=== PATIENT | female | born 1985 | race Caucasian/White ===

== ENCOUNTER 2019-08-20 06:50 | Inpatient (IN) | payer OTHER, MEDICAID ==
[~2019-08-20] VITALS: Ht 162.6 cm; Wt 121.4 kg
[2019-08-21] VITALS (30 sets, daily range): BP systolic 107–147; BP diastolic 53–88; PULSE 76–112; TEMP 97.7–98.6
--- NOTE | 2019-08-21 07:10 | NUR ---
0710- Patient arrives ambulatory with FOB for scheduled induction of labor for PIH. Patient denies contractions, ROM or vaginal bleeding and reports normal movement. Plan of care for induction reviewed, patient denies questions and agrees. 0715- Patient changes into gown, EFM explained and placed. VS obtained. Dr. Rivera at bedside. Discusses POC, patient denies questions. Vertex presentation confirmed via bedside ultrasound by physician. Orders to begin Pitocin induction, physician will come perform SVE and possible AROM later this morning. 0735- IV started in RH, labs obtained and sent. LR infusing per protocol. Consents explained and signed. Patient denies questions. 0800- Pitocin administration reviewed with patient. Patient denies questions, Pitocin started at 2 mU per protocol and order. Reactive FHR strip obtained. Will monitor per protocol. Call light in reach.
[2019-08-21] MEDS ORDERED: PRENATAL TABLET PO (07:31)
[2019-08-21 07:55] LABS: COLLECTION METHOD CLEAN CATCH
[2019-08-21 07:57] LABS: BASO % 0.2 % (0.0-2.0); EOS # 0.2 (0.0-0.7); EOS % 1.6 % (0-4.0); GRAN # 7.8 (1.4-6.5); GRAN % 68.2 % (42.2-75.2); HEMOGLOBIN 12.3 g/dl (12.5-16.0); LYMPH # 2.7 (1.2-3.4); LYMPH % 23.9 % (20.0-51.0); MEAN CELL VOLUME 92 fl (80.0-100.0); MEAN CORPUSCULAR HEMOGLOBIN 31 pg (27.0-31.0); MEAN CORPUSCULAR HGB CONC 34 g/dl (33.0-37.0); MEAN PLATELET VOLUME 10.3 fl (7.4-10.4); MONO # 0.6 (0.1-0.6); MONO % 5.6 % (1.7-9.3); PLATELET COUNT 277 K/mm3 (130-400); RED BLOOD COUNT 3.97 M/mm3 (4.10-5.30); REDCELL DISTRIBUTION WIDTH-CV 13.2 % (11.5-14.5)
[2019-08-21 08:03] LABS: HEMATOCRIT 36.6 % (37.0-47.0)
[2019-08-21 08:09] LABS: ALBUMIN 3.6 gm/dL (3.5-5.0); BILIRUBIN,TOTAL 0.2 mg/dL (0.0-1.0); CALCIUM 8.9 mg/dL (8.4-10.2); CREATININE, serum 0.56 (0.52-1.25); POTASSIUM 4.3 mmol/L (3.4-5.0); TOTAL PROTEIN 6.9 gm/dL (6.4-8.2)
[2019-08-21 08:14] LABS: PH 6 (5-8); URINE APPEARANCE Clear; URINE BACTERIA Occasional /hpf; URINE BILIRUBIN Negative (NEGATIVE); URINE BLOOD Negative (NEGATIVE); URINE COLOR Straw; URINE GLUCOSE Negative (NEGATIVE); URINE KETONE Negative (NEGATIVE); URINE LEUKOCYTE ESTERASE Negative (NEGATIVE); URINE NITRATE Negative (NEGATIVE); URINE PROTEIN(semi-quant) Negative (NEGATIVE); URINE RBC 0-2 /hpf; URINE UROBILINOGEN Negative (NEGATIVE)
--- NOTE | 2019-08-21 09:40 | NUR ---
Patient moving with contractions, difficulty tracing FHR strip and toco continuously due to maternal movement and habitus. Patient repositioned RL. Contractions palpated by RN every 2.5-3 minutes with good resting tone noted.
--- NOTE | 2019-08-21 10:25 | NUR ---
Patient reports increased pain with contractions. SVE 4/70/-3, vertex ballotable. Patient requesting epidural. Christina Bass CRNA notified. 1035- Patient up to bathroom then sitting at bedside for epidural placement. Christina Bass LEGAL NURSE CONSULTANT at bedside. Difficulty tracing FHR due to maternal position and habitus. Pitocin infusion paused at this time due to inability to monitor. 1046- Epidural test dose by Christina Bass CRNA. Patient tolerates well, no adverse reactions noted. See anesthesia record. 1052- Patient repositioned WL following epidural. Updated on plan of care and safety.
--- NOTE | 2019-08-21 12:15 | NUR ---
Patient very uncomfortable with contractions, reports increased pressure. SVE 8/0. Attempt to contact Dr. Rivera x3. Roles on unit. RN remains at bedside. 1220- Dr. Rivera reached, requested at beside for imminent delivery. 1222- Dr. Rivera at bedside. Ahuja catheter removed prior to pushing. Patient assisted to footplates, periprep completed. 1225- SVE 10/+2 per physician. 1228- Patient begins pushing with contractions with physician at bedside. Moves vertex well. 1231- of viable male attended by Dr. Rivera. to mother's abdomen, care of to Radhika Partida RN. Apgars 8/9/9. 1235- Spont. delivery of placenta. Pitocin bolus started at 333ml/hr/protocol. Fundal massage by RN, firm at umbilicus. Perineum intact. Vaginal bleeding WNL. Ice pack applied, patient updated on plan of care and safety reviewed.
[2019-08-22 02:20] VITALS: BP 131/78; PULSE 92; TEMP 97.5
[2019-08-22 07:24] VITALS: BP 122/68; PULSE 76; TEMP 97.4
[2019-08-22] MEDS ORDERED: IBU600 MG PO (09:09)
[2019-08-22 09:30] LABS: HEMOGLOBIN 11.7 g/dl (12.5-16.0)
[2019-08-22 09:33] LABS: HEMATOCRIT 35.2 % (37.0-47.0)
== END 2019-08-22 13:45 | disposition home or self-care (01) | DRG 807 ==
LOC: LDR 08-21 06:50 → OB 08-21 15:39
PROVIDERS: ADMIT Obstetrics & Gynecology
PROC: 10E0XZZ Delivery of Products of Conception, External Approach (ICD-10-PCS; principal; 2019-08-21)
PROC: 3E033VJ Introduction of Other Hormone into Peripheral Vein, Percutaneous Approach (ICD-10-PCS; 2019-08-21)
DX: O13.4 Gestational [pregnancy-induced] hypertension without significant proteinuria, complicating childbirth (principal); Z37.0 Single live birth; Z3A.38 38 weeks gestation of pregnancy; O9A.12 Malignant neoplasm complicating childbirth; D06.9 Carcinoma in situ of cervix, unspecified; O99.334 Smoking (tobacco) complicating childbirth; O99.214 Obesity complicating childbirth
CPT/HCPCS: J2590; J7120